=== PATIENT | female | born 1960 | race Caucasian/White ===

== ENCOUNTER 2017-07-11 07:06 | Day surgery (SDC) | payer OTHER ==
[2017-07-10 15:06] VITALS: BMI 30.7
[2017-07-11] MEDS ORDERED: PROPOFOL 20 ML ONE (07:49)
[2017-07-11] MEDS ORDERED: LIDOCAINE HCL/PF 2% SDV 5ML VIAL ONE (07:49)
[2017-07-11] MEDS ORDERED: ceFAZolin SODIUM 1 GM VIAL ONE (08:03)
[2017-07-11 08:46] VITALS: TEMP 97.7
[2017-07-11 09:24] VITALS: BP 136/70; PULSE 74
--- NOTE | 2017-07-12 13:49 | PATH ---
Surgical Pathology Report Patient Name: HORACE GUTIÉRREZ [facility]. Rec. #: [id number] /Age/Gender: 1960 (Age: 57) / F Account: [id number] Location: [facility]-ENDOSCOPY Taken: 07/11/2017 Received: 07/11/2017 Reported: 07/12/2017 Physicians: Armando Villalpando M.D. Specimen(s) Received BX GASTRIC ANTRUM Clinical History Screening esophageal varices Erosive gastritis, gastric ulcer, gastric and esophageal varices Final Diagnosis STOMACH, ANTRUM, BIOPSY: MODERATE CHRONIC ACTIVE GASTRITIS. IMMUNOSTAIN FOR H. PYLORI IS POSITIVE (MANY ORGANISMS). Electronically Signed Oziel Stapleton M.D. Gross Description Received in formalin, labeled "biopsy gastric antrum" are 2 prieto, irregular portions of soft tissue measuring 0.3 and 0.4 cm. in greatest dimension. The specimens are submitted in toto in one cassette. /07/11/201707/11/2017
== END 2017-07-11 10:20 | disposition home or self-care (01) ==
LOC: JASU-ENDO 07:06
PROVIDERS: ATTEND Internal Medicine Gastroenterology
PROC: 0DB68ZX Excision of Stomach, Via Natural or Artificial Opening Endoscopic, Diagnostic (ICD-10-PCS; 2017-07-11)
PROC: 06L38CZ Occlusion of Esophageal Vein with Extraluminal Device, Via Natural or Artificial Opening Endoscopic (ICD-10-PCS; principal; 2017-07-11 09:00)
DX: I85.00 Esophageal varices without bleeding (principal); K25.9 Gastric ulcer, unspecified as acute or chronic, without hemorrhage or perforation; I86.4 Gastric varices; K76.6 Portal hypertension; K31.89 Other diseases of stomach and duodenum; K29.80 Duodenitis without bleeding
CPT/HCPCS: 88305-TC; 88342-TC

== ENCOUNTER 2017-12-10 16:23 | Emergency (ER) | payer OTHER ==
[2017-12-10 16:48] VITALS: BP 163/71; PULSE 92; TEMP 98.3; BMI 28.3
--- NOTE | 2017-12-10 16:54 | PDOC ---
Rapid Medical Evaluation Time Seen by Provider: 12/10/17 16:41 Medical Evaluation: Allergies Allergy/AdvReac Type Severity Reaction Status Date / Time No Known Allergies Allergy Verified 08/05/15 14:44 12/10/17 16:41 I have performed a brief in-person evaluation of the patient. The patient presents with chief complaints of injury to face, right hand and left knee after trip and fall today while walking over a speed bump. Denies dizziness before or after fall. Denies nausea or vomiting Pertinent physical exam findings are: NAD HEENT: contusions to mid forehead, superficial laceration to forehead bridge of nose with swelling and bruising, deviated to left side lungs clear bilaterally Heart s1s2 ext: both hands with redness and swelling to palm, + tenderness to right hand left knee, able to flex and extend with no crepitus, no tenderness with palpation I have ordered the following: xray or right hand, left knee and facial bones film The patient will proceed in the ED for further evaluation. Discharge Disposition - Referrals Referrals: Andriy Hernandez MD [Primary Care Provider] - - Patient Instructions - Post Discharge Activity
[2017-12-10] MEDS ORDERED: ACETAMINOPHEN 500 MG TABLET (FP) PO ONE (16:55)
[2017-12-10] MEDS ORDERED: ACETAMINOPHEN 500 MG TABLET (FP) ONE (17:20)
--- NOTE | 2017-12-10 17:22 | PDOC ---
History of Present Illness - General Chief Complaint: Abrasion Stated Complaint: FALL JOB INJURY Time Seen by Provider: 12/10/17 16:41 History Source: Patient Exam Limitations: No Limitations - History of Present Illness Initial Comments: CHIEF COMPLAINT: 57 y/o afebrile female with PMH HTN, HLD, NIDDM, asthma, GI ulcer, fatty liver c/o right wrist pain, knee pain and facial pain/abrasions since trip and fall. HISTORY OF PRESENT ILLNESS: The patient was walking over a speed bump today after work and tripped, falling forward onto her knees, right outstretched hand and face. She now has some pain where she scraped her forehead, her right wrist and both knees. She denies f/c, n/v/d, LOC, neck pain, FUNG, changes in vision/hearing, bleeding from ears/nose/mouth, CP, SOB, abd pain. Vital signs on arrival are within normal limits. REVIEW OF SYSTEMS: GENERAL/CONSTITUTIONAL: No fever/chills. No weakness. No weight change. HEAD, EYES, EARS, NOSE AND THROAT: No change in vision. No ear pain or discharge. No sore throat. CARDIOVASCULAR: No chest pain or shortness of breath. RESPIRATORY: No cough, wheezing, or hemoptysis. GASTROINTESTINAL: No abd pain, nausea, vomiting, diarrhea. GENITOURINARY: No dysuria, frequency, or change in urination. MUSCULOSKELETAL: +b/l knee pain. +right wrist pain. No neck or back pain. SKIN: +bruising to face and pain in forehead NEUROLOGIC: No headache, vertigo, loss of consciousness, or loss of sensation. PHYSICAL EXAM: GENERAL: The patient is awake, alert, and fully oriented, in no acute distress. She is well appearing, ambulatory, in NAD or obvious discomfort. HEAD: No hematomas to head. 1.5cm vertical laceration to mid-forehead that is already scabbed over. NECK: No midline cervical spine TTP or step offs. ENT: Pupils equal, round and reactive to light, extraocular movements intact, sclera anicteric, conjunctiva clear. No pain with EOMs. No hemotympanum b/l. No supra or infra orbital swelling, deformities or crepitus. Slight swelling to bridge of nose with TTP. LUNGS: Clear to auscultation bilaterally. Normal excursion. No respiratory distress or use of accessory muscles. CV: RRR, S1/S2, no MRG. Cap refill < 2 sec. ABDOMEN: Soft, non-distended, non-tender even to deep palpation, no hepatomegaly or splenomegaly, no masses. EXTREMITIES: Pain with palpation of right wrist and base of right hand. No obvious deformities or swelling. Full flexion, extension, abduction and adduction of right hand/wrist. No swelling to knees. NEUROLOGICAL: Normal speech, normal gait. CN II-XII grossly intact. SKIN: Multiple small abrasions to face Past History - Past Medical History Allergies/Adverse Reactions: Allergies Allergy/AdvReac Type Severity Reaction Status Date / Time No Known Allergies Allergy Verified 12/10/17 16:44 Home Medications: Ambulatory Orders Albuterol Sulfate [Proair Hfa -] 1 inhaler PO PRN PRN 08/05/15 Glyburide/Metformin HCl [Glucovance 5-500 mg Tablet] 1 each PO BID 08/05/15 Losartan/Hydrochlorothiazide [Hyzaar 100-25 Tablet] 1 each PO DAILY 08/05/15 Montelukast Na [Singulair -] 10 mg PO DAILY 08/05/15 Simvastatin 10 mg PO HS 08/05/15 Apremilast [Otezla] 30 mg PO BID 07/10/17 Sitagliptin Phosphate [Januvia] 25 mg PO HS 07/10/17 Cefuroxime Axetil [Ceftin -] 500 mg PO Q12H #20 tablet 07/11/17 Nadolol [Corgard -] 20 mg PO DAILY #90 tablet 07/11/17 Pantoprazole Sodium 40 mg PO DAILY #90 tablet. 07/11/17 Anemia: Yes (THROMBOCYTOPENIA) Asthma: Yes COPD: No Diabetes: Yes (NIDDM) HTN: Yes Hypercholesterolemia: Yes Liver Disease: Yes (SANTANA WITH CIRRHOSIS AND VARICES) Other medical history: psoriasis - Surgical History Cholecystectomy: Yes Orthopedic Surgery: Yes (RIGHT SHOULDER SURGERY) - Suicide/Smoking/Psychosocial Hx Smoking History: Former smoker Have you smoked in the past 12 months: No Information on smoking cessation initiated: No Hx Alcohol Use: Yes (SOCIALLY) Drug/Substance Use Hx: No Substance Use Type: None Hx Substance Use Treatment: No *Physical Exam - Vital Signs Last Vital Signs Temp Pulse Resp BP Pulse Ox 98.3 F 92 H 19 163/71 96 12/10/17 16:45 12/10/17 16:45 12/10/17 16:45 12/10/17 16:45 12/10/17 16:45 Procedures - Laceration/Wound Repair Head Wound Length: to 2.5 cm Wound Explored: clean Wound's Depth, Shape: superficial, linear Irrigated w/ Saline: Yes Betadine Prep: No Wound Repaired With: Dermabond Medical Decision Making - Medical Decision Making A/P: 57 y/o afebrile female with multiple injuries after slip and fall. Plan is as follows: 1. CT orbits 2. Xray right wrist 3. Knee xrays Patient was offered tylenol but is refusing. CT orbits IMPRESSION: No maxillofacial or orbital fracture is identified. xray right wrist IMPRESSION: (wet read) No fracture knee xray IMPRESSION: (wet read) No fracture Gave the patient all of the results. Cleaned and dermabonded forhead laceration. Provided EFRAIN bandage for right wrist and left knee. Patient instructed to follow RICE instructions and take it easy for a few days. Suggested she apply ice to her face and avoid and moisturizers or oils to her laceration. Pt instructed to return to the ER with any worsening or concerning symptoms. The patient verbalizes understanding of all instructions, has no further questions and is awaiting discharge. *DC/Admit/Observation/Transfer Diagnosis at time of Disposition: Abrasions of multiple sites, Wrist pain, right Fall from slip, trip, or stumble Qualifiers: Encounter type: initial encounter Qualified Code(s): W01.0XXA - Fall on same level from slipping, tripping and stumbling without subsequent striking against object, initial encounter Laceration of forehead Qualifiers: Encounter type: initial encounter Qualified Code(s): S01.81XA - Laceration without foreign body of other part of head, initial encounter Knee pain, left Qualifiers: Chronicity: acute Qualified Code(s): M25.562 - Pain in left knee - Discharge Dispostion Disposition: HOME Condition at time of disposition: Good - Referrals Referrals: Andriy Hernandez MD [Primary Care Provider] - - Patient Instructions Printed Discharge Instructions: DI for Closed Head Injury, DI for Laceration Repair With Dermabond, DI for Wrist Sprain, DI for Knee Pain, How To Perform RICE (Rest, Ice, Compress, Elevate) Additional Instructions: Discharge Instructions: -Do not put moisturizers or oil on the glued laceration -Use EFRAIN bandages for comfort -Follow RICE instructions -Take tylenol for pain if absolutely needed -Return to the ER with any worsening or concerning symptoms - Post Discharge Activity Forms/Work/School Notes: Back to Work
== END 2017-12-10 19:27 | disposition home or self-care (01) ==
LOC: JERFT 16:23
PROC: 0HQ1XZZ Repair Face Skin, External Approach (ICD-10-PCS; principal; 2017-12-10)
DX: S00.83XA Contusion of other part of head, initial encounter (principal); S01.81XA Laceration without foreign body of other part of head, initial encounter; W01.0XXA Fall on same level from slipping, tripping and stumbling without subsequent striking against object, initial encounter; Y93.01 Activity, walking, marching and hiking; Y92.414 Local residential or business street as the place of occurrence of the external cause; Y99.8 Other external cause status; I10 Essential (primary) hypertension; E11.9 Type 2 diabetes mellitus without complications; Z79.84 Long term (current) use of oral hypoglycemic drugs; Z87.19 Personal history of other diseases of the digestive system
CPT/HCPCS: 70486-TC; 73130-TC-RT-FY; 73562-TC-LT-FY; 99281-25

== ENCOUNTER → 2019-01-30 | Day surgery (SDC) | payer OTHER ==
[2019-01-30 15:09] LABS: BF WBC & OTHER NUCLEATED CELLS 259 /mm3
[2019-01-30 15:58] LABS: BODY FLUID MESOTHELIAL 4 %; BODY FLUID MONOCYTE 50 %
[2019-01-31 13:17] LABS: BODY FLUID ALBUMIN 0.7 g/dL (.)
--- NOTE | 2019-02-03 14:23 | PATH ---
Cytology Non-Gynecological Report Patient Name: HORACE GUTIÉRREZ [facility]. Rec. #: [id number] /Age/Gender: 1960 (Age: 58) / F Account: [id number] Location: RADIOLOGY INTER Taken: 01/30/2019 Received: 01/31/2019 Reported: 02/03/2019 Physicians: J Luis Darden D.O. Specimen(s) Received A: ABDOMINAL FLUID B: ABDOMINAL FLUID Clinical History Ascites, liver cirrhosis Final Diagnosis A & B. ABDOMINAL FLUID, PARACENTESIS: SATISFACTORY FOR EVALUATION. NO MALIGNANT CELLS IDENTIFIED. MESOTHELIAL CELLS AND LYMPHOCYTES PRESENT. Comment: Recommend correlation with clinical findings and follow up as clinically indicated. Electronically Signed Ivelisse Dalton M.D. Gross Description A. Approximately 50 cc of yellow fluid received fixed in 50% alcohol. One cytofunnel prepared and Pap stained. One cellblock prepared. B. Approximately 4000 cc of yellow fluid received fresh. One cytofunnel prepared and Pap stained. One cellblock prepared.
== END | disposition home or self-care (01) ==
LOC: JRADIR 11:31
PROVIDERS: ATTEND Internal Medicine Gastroenterology
PROC: 0W9G3ZX Drainage of Peritoneal Cavity, Percutaneous Approach, Diagnostic (ICD-10-PCS; principal; 2019-01-30)
DX: R18.8 Other ascites (principal)
CPT/HCPCS: 36415; 76942-TC; 82042; 82150; 82465; 82945; 83615; 83986; 84157; 84478; 87070; 87075; 87102; 87116; 87205; 87206; 87210; 87899; 88108; 88305-TC

== ENCOUNTER 2022-06-20 05:04 | Day surgery (SDC) | payer OTHER ==
[2022-06-15 14:46] VITALS: BMI 30.8
[2022-06-20] MEDS ORDERED: MIDAZOLAM HCL 2 MG/2 ML SINGLE DOSE VIAL ONE (07:20)
[2022-06-20] MEDS ORDERED: PROPOFOL 20 ML ONE (07:20)
[2022-06-20] MEDS ORDERED: LIDOCAINE HCL/PF (2%) 40 MG/2 ML VIAL ONE (07:23)
[2022-06-20] MEDS ORDERED: ONDANSETRON 4 MG/2 ML VIAL IVPUSH PRN (07:33)
[2022-06-20] MEDS ORDERED: IBUPROFEN 600 MG TABLET (FP) PO PRN (07:33)
[2022-06-20] MEDS ORDERED: IBUPROFEN 800 MG/8 ML IJ IVPB PRN (07:33)
[2022-06-20] MEDS ORDERED: oxyCODONE HCL 5 MG TABLET PO PRN (07:33)
[2022-06-20] MEDS ORDERED: ELECTROLYTE-148 SOLN 1,000 ML IV SCH (07:45)
[2022-06-20] MEDS ORDERED: DEXAMETHASONE SOD PHOSPHATE 4 MG/1 ML VIAL ONE (07:50)
[2022-06-20] MEDS ORDERED: ONDANSETRON 4 MG/2 ML VIAL ONE (07:50)
[2022-06-20] MEDS ORDERED: LACTATED RINGERS SOLUTION 1,000 ML IV SCH (08:00)
[2022-06-20] MEDS ORDERED: KETOROLAC TROMETHAMINE 30 MG/1 ML VIAL ONE (08:04)
[2022-06-20 09:21] VITALS: RESP 20
[2022-06-20 10:46] VITALS: BP 134/72; PULSE 80; TEMP 97.7
== END 2022-06-20 10:46 | disposition home or self-care (01) ==
LOC: JASU-SURG 05:04
PROVIDERS: ATTEND Obstetrics & Gynecology
PROC: 0UDB7ZX Extraction of Endometrium, Via Natural or Artificial Opening, Diagnostic (ICD-10-PCS; 2022-06-20)
PROC: 0UB98ZX Excision of Uterus, Via Natural or Artificial Opening Endoscopic, Diagnostic (ICD-10-PCS; principal; 2022-06-20 07:30)
DX: N84.0 Polyp of corpus uteri (principal)
CPT/HCPCS: 82962; 88305-TC; 94760

== ENCOUNTER 2023-02-05 04:21 | Day surgery (SDC) | payer OTHER ==
[2023-02-02 09:50] VITALS: BMI 31.5
[2023-02-05 09:44] VITALS: RESP 17
[2023-02-05 09:51] VITALS: TEMP 97
[2023-02-05 10:06] VITALS: BP 100/61; PULSE 68
== END 2023-02-05 10:46 | disposition home or self-care (01) ==
LOC: JASU-ENDO 04:21
PROVIDERS: ATTEND Internal Medicine Gastroenterology
PROC: 0DBN8ZX Excision of Sigmoid Colon, Via Natural or Artificial Opening Endoscopic, Diagnostic (ICD-10-PCS; principal; 2023-02-05 09:00)
DX: Z12.11 Encounter for screening for malignant neoplasm of colon (principal); D12.5 Benign neoplasm of sigmoid colon; K64.8 Other hemorrhoids
CPT/HCPCS: 88305-TC

== ENCOUNTER 2023-06-15 15:01 | Emergency (ER) | payer OTHER ==
[2023-06-15 15:07] VITALS: BP 131/77; PULSE 78; RESP 18; TEMP 98; BMI 34.5
[2023-06-15] MEDS ORDERED: DIPHTH,PERTUSS(ACELL),TET 0.5 ML DISP.SYRIN IM ONE ×2 (15:36→15:39)
== END 2023-06-15 15:45 | disposition home or self-care (01) ==
LOC: JER 15:01
PROC: 3E0234Z Introduction of Serum, Toxoid and Vaccine into Muscle, Percutaneous Approach (ICD-10-PCS; principal; 2023-06-15)
DX: S61.052A Open bite of left thumb without damage to nail, initial encounter (principal); W53.11XA Bitten by rat, initial encounter; Y92.039 Unspecified place in apartment as the place of occurrence of the external cause
CPT/HCPCS: 90715; 99283-25